=== PATIENT | female | born 1990 | race Caucasian/White ===

== ENCOUNTER 2017-07-11 09:01 | Observation (INO) | payer OTHER ==
[~2017-07-11] VITALS: Ht 157.5 cm; Wt 71.7 kg
[2017-07-11 09:23] VITALS: BP 126/83
== END 2017-07-11 10:25 | disposition home or self-care (01) ==
LOC: 4S 09:01
PROVIDERS: ADMIT Obstetrics & Gynecology; ATTEND Obstetrics & Gynecology
DX: Z34.83 Encounter for supervision of other normal pregnancy, third trimester (principal); Z3A.38 38 weeks gestation of pregnancy
CPT/HCPCS: 59025; G0378

== ENCOUNTER 2017-07-14 05:15 | Inpatient (IN) | payer OTHER ==
[~2017-07-14] VITALS: Ht 157.5 cm; Wt 69.9 kg
[2017-07-14] MEDS ORDERED: RINGERS SOLUTION,LACTATED 1,000 ML IV ONE (05:32)
[2017-07-14] MEDS ORDERED: PREN1TAB80 PO (05:34)
[2017-07-14 05:36] VITALS: BP 125/80
[2017-07-14] MEDS ORDERED: METOCLOPRAMIDE HCL 5 MG/ML 2 ML VIAL IVP ONE (05:45)
[2017-07-14] MEDS ORDERED: CITRIC ACID/SODIUM CITRATE 30 ML SOLUTION UDCUP PO ONE (05:45)
[2017-07-14 06:14] LABS: BASOPHILS % (AUTO) 0.4 % (0.0-2.0); EOSINOPHILS % (AUTO) 0.8 % (1.0-6.0); HEMATOCRIT 37.4 % (36-46); HEMOGLOBIN 12.5 g/dL (12.0-16.0); LYMPHOCYTES # (AUTO) 2.4 K/uL (1.0-4.8); LYMPHOCYTES % (AUTO) 31.2 % (22.0-44.0); MEAN CORPUSCULAR HEMOGLOBIN 28.8 pg (26.0-34.0); MEAN CORPUSCULAR HGB CONC 33.4 G/dL (31.0-37.0); MEAN CORPUSCULAR VOLUME 86 fL (80-100); MONOCYTES # (AUTO) 0.6 K/uL (0.1-1.0); MONOCYTES % (AUTO) 7.2 % (2.0-9.0); NEUTROPHILS # (AUTO) 4.7 K/uL (1.8-7.7); NEUTROPHILS % (AUTO) 60.4 % (40.0-70.0); PLATELET COUNT (AUTO)-OB 274 K/uL (150-450); RED BLOOD CELL COUNT(AUTO) 4.34 MIL/uL (4.00-5.20); RED CELL DISTRIBUTION WIDTH 13.5 % (11.5-14.5)
[2017-07-14] MEDS ORDERED: CeFAZolin 2 GM/DEXTROSE 50 ML IV ONE (07:38)
[2017-07-14] MEDS ORDERED: FentaNYL CITRATE-PF 100 MCG/2 ML VIAL ONE (07:39)
[2017-07-14] MEDS ORDERED: MORPHINE SULFATE/PF 0.5 MG/ML 10 ML AMP ONE (07:39)
[2017-07-14] MEDS ORDERED: MIDAZOLAM HCL 2 MG/2 ML VIAL ONE (08:20)
[2017-07-14] MEDS ORDERED: KETAMINE HCL 50 MG/ML 10 ML VIAL ONE (08:21)
[2017-07-14] MEDS ORDERED: ACETAMINOPHEN 1000 MG/ISO-OSM 100 ML IV ONE (09:01)
[2017-07-14] MEDS ORDERED: ACETAMINOPHEN/CODEINE 300-30 MG TABLET PO PRN ×2 (09:15)
[2017-07-14] MEDS ORDERED: LANOLIN 7 GM OINTMENT TP PRN (09:15)
[2017-07-14] MEDS ORDERED: NALOXONE HCL 0.4 MG/ML VIAL IVP PRN (09:45)
[2017-07-14] MEDS ORDERED: ONDANSETRON HCL 4 MG/2 ML VIAL IVP PRN ×2 (09:45)
[2017-07-14] MEDS ORDERED: DiphenhydrAMINE HCL 50 MG/ML VIAL IM PRN (09:45)
[2017-07-14] MEDS ORDERED: MORPHINE SULFATE 10 MG/ML SYRINGE IVP PRN (09:45)
[2017-07-14] MEDS ORDERED: FentaNYL CITRATE-PF 100 MCG/2 ML VIAL IVP PRN ×4 (09:45)
[2017-07-14] MEDS ORDERED: MEPERIDINE-PF 25 MG/ML SYRINGE IVP PRN (09:45)
[2017-07-14] MEDS ORDERED: NALBUPHINE HCL 10 MG/ML VIAL IVP PRN ×3 (09:45)
[2017-07-14] MEDS ORDERED: DiphenhydrAMINE HCL 50 MG/ML VIAL IVP PRN ×2 (09:45)
[2017-07-14] MEDS ORDERED: PROMETHAZINE HCL 12.5 MG in SODIUM CHLORIDE 0.9% 50 ML IV PRN (09:45)
[2017-07-14] MEDS ORDERED: DEXAMETHASONE SOD PHOS 4 MG/ML VIAL IVP PRN (09:45)
[2017-07-14] MEDS: DEXTROSE 5%-0.45% SODIUM CHL 1,000 ML IV SCH ×3 (11:14→21:33)
[2017-07-14] MEDS: KETOROLAC TROMETHAMINE 30 MG/ML VIAL IVP SCH ×2 (15:22→21:27)
[2017-07-14] MEDS: ACETAMINOPHEN 1000 MG/ISO-OSM 100 ML IV SCH (17:30)
[2017-07-14] MEDS ORDERED: OXYGEN THERAPY IH SCH ×4 (20:00)
[2017-07-15] MEDS ORDERED: ONDANSETRON HCL 4 MG/2 ML VIAL IVP ONE (01:21)
[2017-07-15] MEDS ORDERED: SUCCINYLCHOLINE CHLORIDE 20 MG/ML 10 ML VIAL IVP ONE (01:21)
[2017-07-15] MEDS ORDERED: OXYTOCIN 10 UNITS/ML VIAL IM ONE (01:21)
[2017-07-15] MEDS ORDERED: EPHEDrine SULFATE 50 MG/ML VIAL IM ONE (01:21)
[2017-07-15] MEDS ORDERED: DEXAMETHASONE SOD PHOS 4 MG/ML VIAL IVP ONE (01:21)
[2017-07-15] MEDS ORDERED: PHENYLEPHRINE HCL 10 MG/ML VIAL IVP ONE (01:21)
[2017-07-15] MEDS ORDERED: PROPOFOL 1% 20 ML VIAL IVP ONE (01:21)
[2017-07-15] MEDS ORDERED: KETOROLAC TROMETHAMINE 60 MG/2 ML VIAL IM ONE (01:21)
[2017-07-15] MEDS: ACETAMINOPHEN 1000 MG/ISO-OSM 100 ML IV SCH (01:36)
[2017-07-15] MEDS: IBUPROFEN 800 MG TABLET PO SCH ×4 (02:00→21:24)
[2017-07-15] MEDS: DEXTROSE 5%-0.45% SODIUM CHL 1,000 ML IV SCH (02:21)
[2017-07-15] MEDS: MAGNESIUM HYDROXIDE SUSPENSION 30 ML UDCUP PO SCH ×2 (09:19→21:25)
[2017-07-16] MEDS: IBUPROFEN 800 MG TABLET PO SCH ×3 (06:39→20:12)
[2017-07-16] MEDS: MAGNESIUM HYDROXIDE SUSPENSION 30 ML UDCUP PO SCH ×2 (08:49→21:00)
[2017-07-16] MEDS ORDERED: GuaiFENesin/D-METHORPHAN [SUGAR-FREE] 200-20MG/10 ML SYRUP UDCUP PO PRN (22:00)
[2017-07-17] MEDS: IBUPROFEN 800 MG TABLET PO SCH ×2 (02:05→08:15)
[2017-07-17] MEDS: MAGNESIUM HYDROXIDE SUSPENSION 30 ML UDCUP PO SCH (09:00)
[2017-07-17] MEDS ORDERED: IBUP-2071 PO (12:05)
== END 2017-07-17 12:30 | disposition home or self-care (01) | DRG 766 ==
LOC: 4S 05:15 → OBSVTOIN 05:15
PROVIDERS: ADMIT Obstetrics & Gynecology; ATTEND Obstetrics & Gynecology
PROC: 10D00Z1 Extraction of Products of Conception, Low, Open Approach (ICD-10-PCS; principal; 2017-07-14)
DX: O34.211 Maternal care for low transverse scar from previous cesarean delivery (principal); Z37.0 Single live birth; Z3A.39 39 weeks gestation of pregnancy
CPT/HCPCS: 86850; 86900; 86901; 87081; J0131; J0330; J0690; J1100; J1885; J2250; J2274; J2370; J2405; J2590; J2704; J2765; J3010; J3490; J7120